=== PATIENT | female | born 1970 | race Caucasian/White ===

== ENCOUNTER 2016-05-20 20:15 | Emergency (ER) | payer OTHER ==
[~2016-05-20] VITALS: Ht 162.6 cm; Wt 122.5 kg
[~2016-05-20 20:15] MED LIST: AMOXICILLIN 50500 M1 PO; APAP500 PO; BACTRIM DS TAB1 EACH PO; CELEXA20 MG PO; CLEOCIN HCL150 MG PO; DIFLUCAN150 MG PO; EFFEXOR 5050 MG/1 T1; HYDROCODON-ACE1 EAC7 PO; HYDROCODON-ACE1 EAC8 PO; IBUPROFEN 600600 M1; IBUPROFEN 600600 M1 PO; KEFLEX500 MG PO; MOBIC15 MG PO; NEURONTIN 300300 M1 PO; NORCO 5-325 TA1 EACH PO; PHENERGAN 25 MG25 M1 PO; TRAMADOL 50 MG50 MG PO; TRAZODONE HCL50 MG PO; XANAX 0.5 MG0.5 M1 PO; XANAX 0.5 MG0.5 MG PO; ZOFRAN ODT4 MG PO
[2016-05-20] MEDS ORDERED: NORCO 5-325 TA1 EACH PO (21:11)
[2016-05-20] MEDS ORDERED: DELTASONE20 MG PO (21:13)
== END 2016-05-20 21:19 | disposition home or self-care (01) ==
LOC: ER 20:15
DX: M54.5 Low back pain (principal); G43.909 Migraine, unspecified, not intractable, without status migrainosus; F41.9 Anxiety disorder, unspecified; G89.29 Other chronic pain; F17.210 Nicotine dependence, cigarettes, uncomplicated

== ENCOUNTER 2016-07-28 21:33 | Emergency (ER) | payer OTHER ==
[~2016-07-28] VITALS: Ht 162.6 cm; Wt 120.2 kg
[~2016-07-28 21:33] MED LIST changes: +DELTASONE20 MG PO
[2016-07-28] MEDS ORDERED: ROBAXIN 750 MG750 M1 PO (21:45)
[2016-07-28 21:53] LABS: URINE BILIRUBIN NEGATIVE (Negative); URINE BLOOD NEGATIVE (Negative); URINE COLOR YELLOW; URINE GLUCOSE-RANDOM* NEGATIVE (Negative); URINE KETONES TRACE (Negative); URINE NITRITE NEGATIVE (Negative); URINE PROTEIN (DIPSTICK) TRACE (Negative); URINE SPECIFIC GRAVITY >= 1.030 (1.003-1.035); URINE UROBILINOGEN 0.2 E.U./dl (0.2-1.0)
[2016-07-28 22:15] LABS: ABSOLUTE NEUTROPHILS 4.5 thou/uL (1.4-8.2); BASOPHILS 0.3 % (0.0-2.0); EOSINOPHILS 3.6 % (0.0-3.0); HEMATOCRIT 45.6 % (37.0-47.0); HEMOGLOBIN 15.6 gm/dL (12.0-15.0); LYMPHOCYTES 32.9 % (24.0-44.0); MCH 31.8 pg (26.0-34.0); MCHC 34.1 g/dL (28.0-37.0); MCV 93.2 fL (80.0-100.0); MONOCYTES 4.4 % (1.0-8.0); PLATELET COUNT 241 thou/uL (150-400); POLYS 58.8 % (36.0-66.0); RBC 4.89 mil/uL (4.20-5.00); RDW 14.2 % (10.5-14.5); WBC 7.6 thou/uL (4.0-11.0)
[2016-07-28 22:16] LABS: MANUAL DIFF NO
[2016-07-28 22:20] LABS: CALCIUM 8.9 mg/dL (8.5-10.1); CREATININE 0.8 mg/dL (0.6-1.3); POTASSIUM 3.9 mmol/L (3.5-5.1)
[2016-07-28 22:27] LABS: ALBUMIN 3.3 g/dL (3.4-5.0); TOTAL BILIRUBIN 0.3 mg/dL (<0.1-1.0)
[2016-07-28] MEDS ORDERED: REGLAN 10 MG TA10 MG PO (22:49)
[2016-07-28] MEDS ORDERED: PHENERGAN 25 MG25 M1 PO (22:49)
== END 2016-07-28 22:56 | disposition home or self-care (01) ==
LOC: ER 21:33
PROVIDERS: Physician Assistant
DX: R11.0 Nausea (principal); F43.0 Acute stress reaction; G89.29 Other chronic pain; F17.210 Nicotine dependence, cigarettes, uncomplicated; F10.99 Alcohol use, unspecified with unspecified alcohol-induced disorder; Z98.890 Other specified postprocedural states; F41.9 Anxiety disorder, unspecified

== ENCOUNTER 2016-07-31 08:44 | Emergency (ER) | payer OTHER ==
[~2016-07-31] VITALS: Ht 162.6 cm; Wt 120.2 kg
[~2016-07-31 08:44] MED LIST changes: +REGLAN 10 MG TA10 MG PO; +ROBAXIN 750 MG750 M1 PO
[2016-07-31] MEDS ORDERED: NORCO 5-325 TA1 EACH PO (09:43)
== END 2016-07-31 10:01 | disposition home or self-care (01) ==
LOC: ER 08:44
DX: S92.522A Displaced fracture of middle phalanx of left lesser toe(s), initial encounter for closed fracture (principal); S30.0XXA Contusion of lower back and pelvis, initial encounter; R07.89 Other chest pain; F41.9 Anxiety disorder, unspecified; G89.29 Other chronic pain; Z98.890 Other specified postprocedural states; F17.210 Nicotine dependence, cigarettes, uncomplicated; F10.99 Alcohol use, unspecified with unspecified alcohol-induced disorder; W10.8XXA Fall (on) (from) other stairs and steps, initial encounter; Y93.89 Activity, other specified; Y92.89 Other specified places as the place of occurrence of the external cause; Y99.8 Other external cause status

== ENCOUNTER 2016-09-17 21:36 | Emergency (ER) | payer OTHER ==
[~2016-09-17] VITALS: Ht 165.1 cm; Wt 121.6 kg
[2016-09-17 22:35] LABS: URINE BILIRUBIN NEGATIVE (Negative); URINE BLOOD NEGATIVE (Negative); URINE COLOR YELLOW; URINE GLUCOSE-RANDOM* NEGATIVE (Negative); URINE KETONES NEGATIVE (Negative); URINE NITRITE NEGATIVE (Negative); URINE PROTEIN (DIPSTICK) NEGATIVE (Negative); URINE SPECIFIC GRAVITY 1.025 (1.003-1.035); URINE UROBILINOGEN 0.2 E.U./dl (0.2-1.0)
[2016-09-18] MEDS ORDERED: HYDROCODONE-APA1 TA1 PO (01:42)
[2016-09-18] MEDS ORDERED: ROBAXIN 750 MG750 M1 PO (01:42)
[2016-09-18] MEDS ORDERED: SENOKOT-S1 TA1 PO (01:44)
== END 2016-09-18 02:00 | disposition home or self-care (01) ==
LOC: ER 21:36
PROVIDERS: Physician Assistant
DX: R07.89 Other chest pain (principal); F41.9 Anxiety disorder, unspecified; M19.90 Unspecified osteoarthritis, unspecified site; G43.909 Migraine, unspecified, not intractable, without status migrainosus; F17.210 Nicotine dependence, cigarettes, uncomplicated

== ENCOUNTER → 2016-10-11 | Outpatient (CLI) | payer OTHER ==
[~2016-10-11] VITALS: Ht 162.6 cm; Wt 120.2 kg
[~2016-10-11] MED LIST changes: -EFFEXOR 5050 MG/1 T1; +EFFEXOR 5050 MG/1 T1 PO; +HYDROCODONE-APA1 TA1 PO; +SENOKOT-S1 TA1 PO
--- NOTE | ~2016-10-11 | HPC ---
[facility] [place] [address] PAIN MANAGEMENT CONSULTATION Name: EVANS COOLEY Room #: REG GABI Gonzales.#: [id number] Admission: 10/11/16 Attend Phys: Katie Grijalva MD Discharge: Date of : 70 Report #: [id number] THIS REPORT FOR: //name// CC: Ba Rudd MD FAM keith Grijalva DATE OF SERVICE: 10/11/2016 PRIMARY CARE PHYSICIAN: Ba Rudd M.D. CHIEF COMPLAINT: Back pain while standing or walking for a prolonged period of time. HISTORY OF PRESENT ILLNESS: The patient is a 45-year-old female who has been referred to the pain clinic for evaluation of back, hip and buttocks pain. The patient states that she has had pain and discomfort, which has been problematic since about 1998. She notes that this pain is quite problematic and keeps her from being as active as she would like. Pain is better if she is sitting or lying down. She notes worsening of her pain if she is standing for a period of time. After standing, she notes that the pain becomes more problematic and must sit down. She notes that going to the grocery store, holding on the cart and leaning forward improves her level of comfort. She rates it as an 8/10. She states that she had seen a surgeon in the past who had told her that she had some significant amount of arthritis going on in her low back area. She has been suffering with pain for a number of years. She is experiencing pain, which radiates down the low back area and down into the buttocks areas bilaterally with weakness. She had an MRI of her back and was told that there is some narrowing in the lower portion of her back and significant arthritis. ALLERGIES: No known drug allergies. MEDICATIONS: Robaxin 750 mg 1 p.o. daily, meloxicam 15 mg 1 daily, gabapentin 300 mg t.i.d., trazodone 50 mg at bedtime, Effexor 50 mg, takes 75 mg twice daily as needed. PAST MEDICAL HISTORY: Anxiety, migraines, stomach problems. SOCIAL HISTORY: She drinks alcohol socially, smokes 1 pack of cigarettes per day, has smoked for 25 years. Marital status is , has a son of 18 who is about to go off to the , daughter age 26. Works a dental food and beverage coordinator. She is working at this juncture. She has been off work for a couple of months because of the pain. PAST SURGICAL HISTORY: Tubal ligation in 1998, cervical ablation 2003, colposcopy x 2, 1990, 1998 and 2000 foot surgery, 2013 [place] [address] PAIN MANAGEMENT CONSULTATION Name: EVANS COOLEYN Room #: REG [facility]#: [id number] Admission: 10/11/16 Attend Phys: Katie Grijalva MD Discharge: Date of : 70 Report #: [id number] fractured bone. REVIEW OF SYSTEMS: A 14-point review of systems questionnaire in the chart indicates generally good health, recent weight change, decreased appetite, night sweats, headaches, blurred vision at times, shortness of breath at times, shortness of breath with walking, chronic cough, shortness of breath, nausea, vomiting, diarrhea, abdominal pain, frequent recurrent headaches, numbness and tingling sensation, hot/cold intolerance. IMAGING STUDIES: MRI of the spine dated 08/09/2016 reveals: 1. Anterior subluxation of L5 on S1 x 11 mm present. 2. Chronic erosion of the inferior L5 vertebral body with marked reduction in disk space height. 3. Bilateral L5 spondylosis with hypertrophic bone formation. 4. There is severe right L5-S1 neural foraminal stenosis and moderate left L5-S1 neural foraminal stenosis. 5. There is minimal posterior L2-L3 and L3-L4 disk bulging. IMPRESSION: 1. Grade 1 spondylolisthesis L5-S1 with severe degenerative changes of the disk and bilateral L5 spondylosis. 2. Severe right L5-S1 neural foraminal stenosis and moderate left L5-S1 neural foraminal stenosis. PHYSICAL EXAMINATION: Blood pressure 133/67, pulse 97, respiratory rate 18, room air saturation 97%. Height 5 feet 4 inches, weight 265 pounds, BMI is 45.5. The patient has pain and discomfort in the lower portion of her back with pain radiating down into the buttocks on the left and right posterior L5-S1 distribution. IMPRESSION: Lumbar radiculopathy secondary to severe L5-S1 degenerative changes with bilateral L5 spondylosis and severe right L5-S1 neural foraminal stenosis and moderate left L5-S1 neural foraminal stenosis. RECOMMENDATIONS: We discussed treatment options with the patient. Risks and benefits of an epidural steroid injection were discussed. Possible complications were reviewed. The patient elects to proceed. A model was used to indicate the area of probable pathology. Risks and benefits of the procedure, which are not limited to infection, increased muscle soreness, headache, bleeding, worsening of pain, improvement in pain and nerve damage were discussed. The patient elects to proceed. PROCEDURE NOTE: The patient was placed in the prone position. Fluoroscopy was used to identify the L5-S1 distribution. This area had been sterilely prepped with Betadine and infiltrated with 0.25% bupivacaine. Total of 80 mg Depo-Medrol, 40 mg triamcinolone was injected. The patient tolerated the [facility] [address] [place] [address] PAIN MANAGEMENT CONSULTATION Name: EVANS COOLEYN [id number] Admission: 10/11/16 Attend Phys: Katie Grijalva MD Discharge: Date of : 70 Report #: [id number] procedure well. There were no complications. The patient remained in the pain clinic for an appropriate amount of time. Her pain decreased to 3 at the time of discharge. She will follow up in the future as needed. We would like to thank you for letting us participate in her care. We hope she continues to improve. By: [id number] Katie Grijalva MD /nt
[2016-10-11 13:32] VITALS: BP 133/67
== END | disposition home or self-care (01) ==
LOC: PAIN 07:00
DX: M54.16 Radiculopathy, lumbar region (principal); M47.816 Spondylosis without myelopathy or radiculopathy, lumbar region; M48.06 Spinal stenosis, lumbar region; F17.210 Nicotine dependence, cigarettes, uncomplicated; Z98.890 Other specified postprocedural states

== ENCOUNTER 2016-10-18 02:33 | Emergency (ER) | payer OTHER ==
[~2016-10-18] VITALS: Ht 162.6 cm; Wt 90.7 kg
[2016-10-18] MEDS ORDERED: NAPROSYN500 MG PO (03:27)
[2016-10-18] MEDS ORDERED: KEFLEX500 MG PO (03:27)
== END 2016-10-18 04:00 | disposition home or self-care (01) ==
LOC: ER 02:33
DX: L02.214 Cutaneous abscess of groin (principal); F17.210 Nicotine dependence, cigarettes, uncomplicated; F10.99 Alcohol use, unspecified with unspecified alcohol-induced disorder; Z98.890 Other specified postprocedural states

== ENCOUNTER → 2016-11-27 | Outpatient (CLI) | payer OTHER ==
[~2016-11-27] VITALS: Ht 162.6 cm; Wt 119.8 kg
[~2016-11-27] MED LIST changes: +NAPROSYN500 MG PO
--- NOTE | ~2016-11-27 | HPC ---
[facility] [place] [address] [place] [address] PAIN MANAGEMENT CONSULTATION Name: EVANS COOLEY Room #: REG [facility] JanetYael#: [id number] Admission: 11/27/16 Attend Phys: Katie Grijalva MD Discharge: Date of : 70 Report #: [id number] THIS REPORT FOR: //name// CC: CALVIN Grijalva DATE OF SERVICE: 11/27/2016 FOLLOWUP HISTORY: The patient is a 46-year-old female who has been seen in the pain clinic because of lumbar radiculopathy. She has undergone epidural steroid injections and gleaned benefit from this. She continues to have some pain and discomfort, which radiates down into the L5-S1 nerve root area. She would like to receive another injection today. She has had no complications from the previous injections. There have been no changes in bowel or bladder function. She does continue to have pain and discomfort, which radiates down the low back area in the posterior portion of her buttocks and hamstring area. PHYSICAL EXAMINATION: Blood pressure 139/92, pulse 96, respiratory rate 16, room air saturation 96%, height 5 feet 4 inches, weight 119 kg, and BMI is 45. The patient complains of some weakness in the right low back area as well as pain and discomfort down into the L5-S1 distribution from the buttocks to the mid thigh area. IMPRESSION: 1. Grade 1 spondylolisthesis of L5-S1 with severe degenerative changes of the disk and bilateral L5 spondylosis. 2. Severe L5-S1 neural foraminal stenosis and moderate left L5-S1 neural foraminal stenosis. RECOMMENDATIONS: We discussed the treatment options with the patient. Risks and benefits of an epidural steroid injection were again reviewed. Possible complications were discussed. The patient elects to proceed. PROCEDURE NOTE: The patient was placed in the prone position. Fluoroscopy was used to identify the L5-S1 interspace. This area had been sterilely prepped with Betadine and infiltrated with 0.25% bupivacaine. Total of 80 mg Depo-Medrol, 40 mg triamcinolone and 2 mL of 0.5% bupivacaine was injected. The patient tolerated the procedure well. There were no complications. She remained in the pain clinic for an appropriate amount of time. She will follow up in the future as needed. <ELECTRONICALLY SIGNED> By: Katie Grijalva MD 11/28/16 0822 [id number] [id number] Katie Grijalva MD /nt
[2016-11-27 09:57] VITALS: BP 139/92
== END | disposition home or self-care (01) ==
LOC: PAIN 06:40
DX: M51.36 Other intervertebral disc degeneration, lumbar region (principal); M48.06 Spinal stenosis, lumbar region; M47.896 Other spondylosis, lumbar region; M43.17 Spondylolisthesis, lumbosacral region; G43.909 Migraine, unspecified, not intractable, without status migrainosus; Z72.0 Tobacco use

== ENCOUNTER 2017-01-28 01:26 | Emergency (ER) | payer OTHER ==
[~2017-01-28] VITALS: Ht 162.6 cm; Wt 111.1 kg
--- NOTE | ~2017-01-28 | EKG ---
[place] [address] [facility] [place] [address] ELECTROCARDIOGRAM REPORT Name: EVANS COOLEY Room #: [facility]P [facility] [id number] Admission: 01/28/17 Attend Phys: Discharge: 01/28/17 Date of : 70 Report #: [id number] THIS REPORT FOR: //name// [facility] ED Test Date: 2017-01-28 Test Time: 01:51:11 Pat Name: EVANS COOLEY Department: Room: Gender: F Internet Researcher: MZOOK : 1970 Requested By: Hesham Mendes Order Number: [id number] MD: Naseem Brady Measurements Intervals [place] Rate: 81 P: 62 AR: 151 QRS: 67 QRSD: 82 T: 33 QT: 368 QTc: 428 Interpretive Statements Sinus rhythm Low voltage, precordial leads Poor R wave progression Compared to ECG 10/03/2015 04:58:50 No significant change was found Electronically Signed On 01-28-2017 8:40:34 CDT by Naseem Brady [email or web address] <ELECTRONICALLY SIGNED> By: Naseem Brady MD, [facility] 01/28/17 0840 015 015 Naseem Brady MD, [facility] /EPI
[2017-01-28 01:53] LABS: ABSOLUTE NEUTROPHILS 6.8 thou/uL (1.4-8.2); BASOPHILS 1.1 % (0.0-2.0); EOSINOPHILS 2.4 % (0.0-3.0); HEMOGLOBIN 15.5 gm/dL (12.0-15.0); LYMPHOCYTES 28.3 % (24.0-44.0); MCH 31.6 pg (26.0-34.0); MCHC 33.8 g/dL (28.0-37.0); MCV 93.7 fL (80.0-100.0); MONOCYTES 5.3 % (1.0-8.0); PLATELET COUNT 280 thou/uL (150-400); POLYS 62.9 % (36.0-66.0); RBC 4.91 mil/uL (4.20-5.00); RDW 14.2 % (10.5-14.5); WBC 10.8 thou/uL (4.0-11.0)
[2017-01-28 02:00] LABS: MANUAL DIFF NO
[2017-01-28 02:03] LABS: ANION GAP 14 mmol/L (7-16); BUN 13 mg/dL (7-18); CALCIUM 9.2 mg/dL (8.5-10.1); CHLORIDE 104 mmol/L (98-107); CO2 24 mmol/L (21-32); CREATININE 0.8 mg/dL (0.6-1.0); GLUCOSE 114 mg/dL (74-106); POTASSIUM 3.7 mmol/L (3.5-5.1); SODIUM 142 mmol/L (136-145)
[2017-01-28 02:09] LABS: ALBUMIN 3.5 g/dL (3.4-5.0); ALKALINE PHOSPHATASE 88 U/L (46-116); SGOT 19 U/L (15-37); SGPT 33 U/L (30-65); TOTAL BILIRUBIN 0.3 mg/dL (<0.1-1.0); TOTAL PROTEIN 7.7 g/dL (6.4-8.2); TROPONIN-I < 0.04 ng/mL (<0.04-0.07)
[2017-01-28] MEDS ORDERED: PHENERGAN 25 MG25 M1 PO (02:57)
[2017-01-28] MEDS ORDERED: EFFEXOR XR75 MG PO (03:09)
== END 2017-01-28 03:27 | disposition home or self-care (01) ==
LOC: ER 01:26
PROVIDERS: Emergency Medicine
DX: F13.239 Sedative, hypnotic or anxiolytic dependence with withdrawal, unspecified (principal); J06.9 Acute upper respiratory infection, unspecified; R19.7 Diarrhea, unspecified; R11.2 Nausea with vomiting, unspecified; F17.210 Nicotine dependence, cigarettes, uncomplicated; F10.99 Alcohol use, unspecified with unspecified alcohol-induced disorder

== ENCOUNTER 2017-02-10 23:40 | Emergency (ER) | payer OTHER ==
[~2017-02-10] VITALS: Ht 162.6 cm; Wt 117.9 kg
[~2017-02-10 23:40] MED LIST changes: +EFFEXOR XR75 MG PO
[2017-02-11] MEDS ORDERED: PREDNISONE 20 M20 MG PO (00:30)
[2017-02-11] MEDS ORDERED: ZYRTEC10 MG PO (00:30)
[2017-02-11] MEDS ORDERED: PEPCID40 MG PO (00:30)
== END 2017-02-11 00:52 | disposition home or self-care (01) ==
LOC: ER 23:40
DX: L50.0 Allergic urticaria (principal); F17.210 Nicotine dependence, cigarettes, uncomplicated; F10.99 Alcohol use, unspecified with unspecified alcohol-induced disorder

== ENCOUNTER 2017-02-26 15:06 | Emergency (ER) | payer OTHER ==
[~2017-02-26] VITALS: Ht 162.6 cm; Wt 115.7 kg
[~2017-02-26 15:06] MED LIST changes: +PEPCID40 MG PO; +PREDNISONE 20 M20 MG PO; +ZYRTEC10 MG PO
[2017-02-26] MEDS ORDERED: MOBIC7.5 MG PO (15:13)
[2017-02-26] MEDS ORDERED: BACTRIM DS TAB1 EACH PO (15:28)
== END 2017-02-26 15:50 | disposition home or self-care (01) ==
LOC: ER 15:06
DX: N61.1 Abscess of the breast and nipple (principal); F17.210 Nicotine dependence, cigarettes, uncomplicated; Z98.890 Other specified postprocedural states

== ENCOUNTER 2017-11-05 09:24 | Emergency (ER) | payer BC, OTHER ==
[~2017-11-05] VITALS: Ht 162.6 cm; Wt 115.7 kg
[~2017-11-05 09:24] MED LIST changes: +AFRIN30 ML NASAL; +MOBIC7.5 MG PO
[2017-11-05] MEDS ORDERED: TRAZODONE HCL50 MG PO (09:32)
[2017-11-05] MEDS ORDERED: CLOTRIMAZOLE AF15 G5 TOP (09:48)
[2017-11-05] MEDS ORDERED: NYAMYC15 GM TOP (09:48)
== END 2017-11-05 10:04 | disposition home or self-care (01) ==
LOC: ER 09:24
DX: B37.2 Candidiasis of skin and nail (principal); F17.210 Nicotine dependence, cigarettes, uncomplicated

== ENCOUNTER 2018-03-10 11:01 | Emergency (ER) | payer BC, OTHER ==
[~2018-03-10] VITALS: Ht 162.6 cm; Wt 113.4 kg
[~2018-03-10 11:01] MED LIST changes: +BUTALB-APAP-CA1 EACH PO; +CLOTRIMAZOLE AF15 G5 TOP; +GLUCOPHAGE XR500 MG PO; +NYAMYC15 GM TOP
[2018-03-10 13:17] LABS: POTASSIUM 4.2 mmol/L (3.5-5.1)
[2018-03-10] MEDS ORDERED: SENNA-DOCUSATE1 EACH PO (15:41)
[2018-03-10] MEDS ORDERED: AUGMENTIN 875-1 EACH PO (15:41)
[2018-03-10] MEDS ORDERED: MEDROLDOSEPACK PO (15:41)
[2018-03-10] MEDS ORDERED: NORCO 7.5-3251 EACH PO (15:41)
[2018-03-10] MEDS ORDERED: DIFLUCAN150 MG PO (16:02)
[2018-03-10 16:08] VITALS: BP 101/78
== END 2018-03-10 16:09 | disposition home or self-care (01) ==
LOC: ER 11:01
PROVIDERS: Emergency Medicine
DX: J01.00 Acute maxillary sinusitis, unspecified (principal); F17.210 Nicotine dependence, cigarettes, uncomplicated

== ENCOUNTER 2018-05-04 13:55 | Emergency (ER) | payer OTHER ==
[~2018-05-04] VITALS: Ht 165.1 cm; Wt 83.9 kg
[~2018-05-04 13:55] MED LIST changes: +AUGMENTIN 875-1 EACH PO; +MEDROLDOSEPACK PO; +NORCO 7.5-3251 EACH PO; +SENNA-DOCUSATE1 EACH PO
[2018-05-04 15:21] VITALS: BP 126/78
== END 2018-05-04 15:22 | disposition home or self-care (01) ==
LOC: ER 13:55
DX: S09.90XA Unspecified injury of head, initial encounter (principal); M25.562 Pain in left knee; F17.210 Nicotine dependence, cigarettes, uncomplicated; W10.9XXA Fall (on) (from) unspecified stairs and steps, initial encounter; Y92.89 Other specified places as the place of occurrence of the external cause; Y93.89 Activity, other specified; Y99.8 Other external cause status

== ENCOUNTER → 2018-12-30 | Outpatient (CLI) | payer OTHER | LOC: RAD 01:31 | DX: Z12.31 Encounter for screening mammogram for malignant neoplasm of breast (principal) ==

== ENCOUNTER 2020-01-16 04:14 | Emergency (ER) | payer OTHER ==
[~2020-01-16] VITALS: Ht 165.1 cm; Wt 120.2 kg
[2020-01-16] MEDS ORDERED: NEURONTIN 300M300 M2 PO (04:16)
[2020-01-16] MEDS ORDERED: NORCO 7.5-3251 EACH PO (05:39)
[2020-01-16] MEDS ORDERED: MOBIC7.5 MG PO (05:39)
[2020-01-16 05:44] VITALS: BP 123/70
== END 2020-01-16 05:50 | disposition home or self-care (01) ==
LOC: ER 04:14
DX: M54.31 Sciatica, right side (principal); F17.210 Nicotine dependence, cigarettes, uncomplicated; Z79.899 Other long term (current) drug therapy

== ENCOUNTER 2020-06-01 14:02 | Emergency (ER) | payer OTHER ==
[~2020-06-01] VITALS: Ht 165.1 cm; Wt 115.7 kg
[~2020-06-01 14:02] MED LIST changes: +NEURONTIN 300M300 M2 PO
[2020-06-01] MEDS ORDERED: MELOXICAM15 MG PO (14:23)
[2020-06-01] MEDS ORDERED: ONDANSETRON HCL4 M2 PO (14:42)
[2020-06-01 16:00] VITALS: BP 164/82
== END 2020-06-01 16:45 | disposition home or self-care (01) ==
LOC: ER 14:02
DX: R11.2 Nausea with vomiting, unspecified (principal); F17.210 Nicotine dependence, cigarettes, uncomplicated; Z20.828 Contact with and (suspected) exposure to other viral communicable diseases; Z79.899 Other long term (current) drug therapy

== ENCOUNTER 2020-07-18 17:58 | Emergency (ER) | payer BC, OTHER ==
[~2020-07-18] VITALS: Ht 162.6 cm; Wt 88.5 kg
[~2020-07-18 17:58] MED LIST changes: +MELOXICAM15 MG PO; +ONDANSETRON HCL4 M2 PO
[2020-07-18] MEDS ORDERED: ZOFRAN ODT4 MG PO (19:21)
[2020-07-18] MEDS ORDERED: NORCO 10-325 T1 EACH PO (19:21)
[2020-07-18 19:29] VITALS: BP 135/71
== END 2020-07-18 19:29 | disposition home or self-care (01) ==
LOC: ER 17:58
DX: S16.1XXA Strain of muscle, fascia and tendon at neck level, initial encounter (principal); S09.90XA Unspecified injury of head, initial encounter; F17.210 Nicotine dependence, cigarettes, uncomplicated; Z79.899 Other long term (current) drug therapy; W10.9XXA Fall (on) (from) unspecified stairs and steps, initial encounter; Y93.89 Activity, other specified; Y92.89 Other specified places as the place of occurrence of the external cause; Y99.8 Other external cause status

== ENCOUNTER 2020-10-05 14:40 | Emergency (ER) | payer OTHER ==
[~2020-10-05] VITALS: Ht 165.1 cm; Wt 115.7 kg
[~2020-10-05 14:40] MED LIST changes: +NORCO 10-325 T1 EACH PO
[2020-10-05 15:35] LABS: URINE BILIRUBIN NEGATIVE (Negative); URINE BLOOD NEGATIVE (Negative); URINE CLARITY CLEAR; URINE COLOR YELLOW; URINE GLUCOSE-RANDOM* NEGATIVE (Negative); URINE KETONES NEGATIVE (Negative); URINE LEUKOCYTES-REFLEX TRACE (Negative); URINE NITRITE-REFLEX POSITIVE (Negative); URINE PROTEIN (DIPSTICK) NEGATIVE (Negative); URINE SPECIFIC GRAVITY >= 1.030 (1.005-1.035); URINE UROBILINOGEN 0.2 E.U./dl (0.2-1.0)
[2020-10-05 15:48] LABS: ABSOLUTE NEUTROPHILS 5.5 thou/uL (1.4-8.2); BASOPHILS 1.1 % (0.0-2.0); EOSINOPHILS 3.2 % (0.0-3.0); HEMATOCRIT 44.2 % (37.0-47.0); HEMOGLOBIN 14.7 gm/dL (12.0-15.0); LYMPHOCYTES 24.5 % (24.0-44.0); MCHC 33.3 g/dL (28.0-37.0); MCV 93.3 fL (80.0-100.0); MONOCYTES 3.9 % (1.0-8.0); PLATELET COUNT 237 thou/uL (150-400); POLYS 67.3 % (36.0-66.0); RBC 4.74 mil/uL (4.20-5.00); RDW 14.3 % (10.5-14.5); WBC 8.2 thou/uL (4.0-11.0)
[2020-10-05 15:52] LABS: CASTS None Seen /LPF (None Seen); SQUAMOUS >10 Many /LPF (0-3); URINE RBC None Seen /HPF (NONE SEEN); URINE WBC-REFLEX 0-5 Rare /HPF (0-5)
[2020-10-05 15:53] LABS: BACTERIA-REFLEX >30 Many /HPF (None Seen); CRYSTALS None Seen /LPF (None Seen)
[2020-10-05 16:03] LABS: ALBUMIN 3.2 g/dL (3.4-5.0); CREATININE 0.9 mg/dL (0.6-1.0); POTASSIUM 3.8 mmol/L (3.5-5.1); TOTAL BILIRUBIN 0.4 mg/dL (0.2-1.0); TOTAL PROTEIN 7.4 g/dL (6.4-8.2)
[2020-10-05] MEDS ORDERED: PHENERGAN 25 MG25 M1 PO (16:35)
[2020-10-05] MEDS ORDERED: CEPHALEXIN500 MG PO (16:35)
[2020-10-05] MEDS ORDERED: ONDANSETRON HCL4 M2 PO (16:35)
[2020-10-05 16:43] VITALS: BP 134/68
[2020-10-08] MEDS ORDERED: CEPHALEXIN500 MG PO (08:32)
== END 2020-10-05 16:44 | disposition home or self-care (01) ==
LOC: ER 14:40
PROVIDERS: Nurse Practitioner
DX: R11.2 Nausea with vomiting, unspecified (principal); R19.7 Diarrhea, unspecified; F17.210 Nicotine dependence, cigarettes, uncomplicated

== ENCOUNTER 2021-04-25 17:07 | Emergency (ER) | payer OTHER ==
[~2021-04-25] VITALS: Ht 162.6 cm; Wt 117.9 kg
[~2021-04-25 17:07] MED LIST changes: +CEPHALEXIN500 MG PO
[2021-04-25 22:48] VITALS: BP 114/72
== END 2021-04-25 22:49 | disposition home or self-care (01) ==
LOC: ER 17:07
DX: M77.11 Lateral epicondylitis, right elbow (principal); F17.210 Nicotine dependence, cigarettes, uncomplicated; Z98.890 Other specified postprocedural states; Z79.891 Long term (current) use of opiate analgesic; Z79.1 Long term (current) use of non-steroidal anti-inflammatories (NSAID); Z79.899 Other long term (current) drug therapy

== ENCOUNTER 2021-05-05 18:27 | Emergency (ER) | payer OTHER ==
[~2021-05-05] VITALS: Ht 165.1 cm; Wt 120.2 kg
[2021-05-05 18:28] VITALS: BP 155/72
== END 2021-05-05 21:37 | disposition home or self-care (01) ==
LOC: ER 18:27
DX: M54.6 Pain in thoracic spine (principal); F17.210 Nicotine dependence, cigarettes, uncomplicated; Z98.890 Other specified postprocedural states; Z79.891 Long term (current) use of opiate analgesic; Z79.899 Other long term (current) drug therapy; Z79.1 Long term (current) use of non-steroidal anti-inflammatories (NSAID)